=== PATIENT | female | born 1965 | race Hispanic/Latino ===

== ENCOUNTER → 2021-09-19 | Outpatient (CLI) | payer MEDICARE ==
[~2021-09-19] MED LIST: IOPAMIDOL 370 MG/ML 100 ML INFUS..BTL INJ ONE; SODIUM CHLORIDE 0.9% 250ML 250 ML ONE
== END ==
LOC: CT 15:39
PROVIDERS: ATTEND Urology
DX: R31.21 Asymptomatic microscopic hematuria (principal)
CPT/HCPCS: 74178; J7050; Q9967

== ENCOUNTER → 2021-12-13 | Outpatient (CLI) | payer MEDICARE | LOC: CT 14:02 | PROVIDERS: ATTEND Urology | DX: R31.21 Asymptomatic microscopic hematuria (principal); Z80.42 Family history of malignant neoplasm of prostate | CPT/HCPCS: 74178; J7050; Q9967 ==

== ENCOUNTER → 2022-11-11 | Outpatient (CLI) | payer OTHER | LOC: US 13:07 | PROVIDERS: ATTEND Urology | DX: N39.0 Urinary tract infection, site not specified (principal); Z84.1 Family history of disorders of kidney and ureter | CPT/HCPCS: 74018; 76770 ==

== ENCOUNTER → 2023-11-25 | Outpatient (REF) | payer OTHER | LOC: MRI 12:58 | PROVIDERS: ATTEND Orthopaedic Surgery | DX: S46.011A Strain of muscle(s) and tendon(s) of the rotator cuff of right shoulder, initial encounter (principal); M19.011 Primary osteoarthritis, right shoulder ==